=== PATIENT | male | born 2000 | race Caucasian/White ===

== ENCOUNTER 2022-03-21 22:14 | Emergency (ER) | payer OTHER ==
[2022-03-21] MEDS ORDERED: Ketorolac Tromethamine 30 MG/ML VIAL ONE (22:40)
[2022-03-21] MEDS ORDERED: Ondansetron PF 4 MG/2 ML Vial ONE (22:40)
[2022-03-21] MEDS ORDERED: Boostrix 0.5 ML (Tdap) VIAL ONE (22:41)
[2022-03-21] MEDS ORDERED: Lidocaine 1% w/Epinephrine 1:100K 20 ML VIAL ONE (23:07)
[2022-03-22] MEDS ORDERED: Ondansetron PF 4 MG/2 ML Vial ONE ×4 (00:47→04:43)
[2022-03-22] MEDS ORDERED: Morphine 4 MG/ML VIAL ONE ×2 (00:47→04:42)
== END 2022-03-22 06:35 | disposition home or self-care (01) ==
LOC: ERS 22:14
DX: S12.500A Unspecified displaced fracture of sixth cervical vertebra, initial encounter for closed fracture (principal); S01.01XA Laceration without foreign body of scalp, initial encounter; S01.112A Laceration without foreign body of left eyelid and periocular area, initial encounter; S51.011A Laceration without foreign body of right elbow, initial encounter; S01.311A Laceration without foreign body of right ear, initial encounter; S61.401A Unspecified open wound of right hand, initial encounter; S41.101A Unspecified open wound of right upper arm, initial encounter; S81.001A Unspecified open wound, right knee, initial encounter; V86.59XA Driver of other special all-terrain or other off-road motor vehicle injured in nontraffic accident, initial encounter; Z23 Encounter for immunization
CPT/HCPCS: 12002; 12013; 12034; 70450; 72125; 90471; 90715; 96374; 96375; 96376; J1885; J2270; J2405

== ENCOUNTER 2022-05-13 08:52 | Outpatient (CLI) | payer OTHER | END 2022-05-13 08:53 | disposition home or self-care (01) | LOC: TBSIIMAG 08:52 | PROVIDERS: ATTEND Neurological Surgery | DX: S12.9XXD Fracture of neck, unspecified, subsequent encounter (principal) | CPT/HCPCS: 72040 ==